=== PATIENT | male | born 1980 | race Two or more races ===

== ENCOUNTER 2023-08-10 00:18 | Emergency (ER) | payer MEDICAID, OTHER ==
[~2023-08-10] VITALS: Ht 182.9 cm; Wt 113.0 kg
[2023-08-10] MEDS ORDERED: TETANUS-DIPTH-ACEL PERTUSSIS 0.5ML SYR Tdap IM ONE (01:00)
[2023-08-10] MEDS ORDERED: AMOXICILLIN/CLAVUL 875 MG TAB PO ONE (01:00)
[2023-08-10] MEDS ORDERED: HYDROcodone-ACET 5/325MG TAB PO ONE (01:00)
[2023-08-10] MEDS ORDERED: NEOMYCIN-BACITRACIN-POLYM UNITDOSE PKG TOP OINT TOP ONE (01:00)
[2023-08-10] MEDS ORDERED: MUPI2OIN2 EX (01:13)
[2023-08-10] MEDS ORDERED: IBUP1TAB5 PO (01:13)
[2023-08-10] MEDS ORDERED: AUG875T PO (01:13)
[2023-08-10 02:12] VITALS: BP 148/108; PULSE 77; RESP 15; O2SAT 99
== END 2023-08-10 02:50 | disposition home or self-care (01) ==
LOC: ER 00:18
DX: S31.010A Laceration without foreign body of lower back and pelvis without penetration into retroperitoneum, initial encounter (principal); R03.0 Elevated blood-pressure reading, without diagnosis of hypertension; W54.0XXA Bitten by dog, initial encounter; Y93.89 Activity, other specified; Y92.89 Other specified places as the place of occurrence of the external cause; Y99.8 Other external cause status
CPT/HCPCS: 90471; 90715